=== PATIENT | male | born 1990 | race Caucasian/White ===

== ENCOUNTER 2018-05-11 06:05 | Inpatient (IN) | payer OTHER ==
[~2018-05-11] VITALS: Ht 170.2 cm; Wt 79.4 kg
[~2018-05-11 06:05] MED LIST: VERAPAMIL E.R240 M1 PO
[2018-05-11 06:14] VITALS: BP 131/87
[2018-05-11 06:40] LABS: CREATININE 1.1 mg/dL (0.6-1.3); POTASSIUM 3.6 mmol/L (3.5-5.1)
[2018-05-11 06:41] LABS: ABSOLUTE BASOPHILS 0.1 thou/uL (0.0-0.2); ABSOLUTE EOSINOPHILS 0.2 thou/uL (0.0-0.7); ABSOLUTE LYMPHOCYTES 2.6 thou/uL (0.8-5.3); ABSOLUTE MONOCYTES 1.1 thou/uL (0.0-1.2); ABSOLUTE NEUTROPHILS 9.5 thou/uL (1.6-8.1); BASOPHILS 0.8 %; EOSINOPHILS 1.7 %; HEMOGLOBIN 14.7 gm/dL (14.0-18.0); LYMPHOCYTES 19.2 %; MCH 27.6 pg (26.0-34.0); MCHC 33.3 g/dL (28.0-37.0); MCV 82.8 fL (80.0-100.0); MONOCYTES 7.8 %; MPV 7.5 fl. (7.2-11.1); NUCLEATED RBCS 0 /100WBC; PLATELET COUNT* 314 thou/uL (150-400); POLYS 70.5 %; RBC 5.32 mil/uL (4.50-6.00); WBC 13.5 thou/uL (4.0-11.0)
[2018-05-11 06:50] LABS: ALBUMIN 3.9 g/dL (3.4-5.0); TOTAL BILIRUBIN 0.6 mg/dL (<0.1-1.0); TOTAL PROTEIN 7.2 g/dL (6.4-8.2); TROPONIN-I LEVEL 0.21 ng/mL (<0.06)
--- NOTE | 2018-05-11 07:15 | NUR ---
CARDIZEM DRIP INFREASED FROM 10ML/HR TO 15ML/HR
--- NOTE | 2018-05-11 07:29 | NUR ---
CARDIZEM DRIP INCREASED TO 20/ML/HR
--- NOTE | 2018-05-11 07:33 | NUR ---
PATIENT CONVERTED TO SINUS RHYTHM
--- NOTE | 2018-05-11 07:54 | NUR ---
CARDIZEM DECREASED TO 15ML/HR
--- NOTE | 2018-05-11 08:20 | NUR ---
CARDIZEM DRIP DROPPED TO 10ML/HR
[2018-05-11 08:23] VITALS: BP 117/63
[2018-05-11 08:35] VITALS: BP 116/71
--- NOTE | 2018-05-11 10:47 | NUR ---
RECEIVED BEDSIDE REPORT FROM RAJNI OSHEA. ASSUMED CARE OF PT AROUND 0730. PT A&O X4. VSS. O2 97% ON RA. PT ORIENTED TO ROOM, BED AND CALL LIGHT. PT COMMUNCIATES UNDERSTANDING. ADMISSION HISTORY, EDUCATION AND ASSESSMENT COMPLETED CHARTED. PT DENIES PAIN OR DISCOMFORT AT THIS TIME. FLIGHT DATA TECHNICIAN PLACED TRACING SR WITH ABNORMAL T-WAVE. PT ASYMPTOMATIC. DENIES CHEST PAIN OR SOB. PT SEEN BY ADIS MOSLEY. ECHO ORDERED. FATHER AT BEDSIDE. PT CURRENLTY WATCHING TV IN BED. LOW FALL RISK PRECAUTIONS IN PLACE. CALL LIGHT IS WITHIN REACH. HOURLY ROUNDING PERFORMED. WCTM.
[2018-05-11 12:06] VITALS: BP 112/71
[2018-05-11 13:53] LABS: AMP/METHAMP Negative (Negative); BARBITURATES Negative (Negative); BENZODIAZEPINES POSITIVE (Negative); COCAINE Negative (Negative); METHADONE Negative (Negative); OPIATES Negative (Negative); PCP Negative (Negative); THC POSITIVE (Negative)
[2018-05-11 15:40] VITALS: BP 112/71
--- NOTE | 2018-05-11 18:01 | 2DMMODE ---
[place] [address] 2 D/M-MODE ECHOCARDIOGRAM Name: CARLITA THORNE [facility] Room: [address] IN [facility]#: [id number] Admission: 05/11/18 Attend Phys: Bonilla Cline Discharge: Date of : 89 Date of Service: 05/11/18 1801 Report #: [id number] THIS REPORT FOR: //name// APPROVED REPORT Study performed: 05/11/2018 14:33:27 EXAM: Comprehensive 2D, Doppler, and color-flow Echocardiogram Patient Location: In-Patient Room #: 200 Status: routine BSA: 1.91 HR: 75 bpm BP: 112/71 mmHg Rhythm: NSR Other Information Study Quality: Good Indications SVT 2D Dimensions LVEF(%): 62.38 (>50%) IVSd: 11.03 (7-11mm) LVOT Diam: 21.93 (18-24mm) LVDd: 48.08 mm PWd: 9.95 (7-11mm) Ascending Ao: 27.06 (22-36mm) LVDs: 31.88 (25-40mm) Aortic Root: 31.01 mm Ferrell's LVEF: 62.38 % Volumes Left Atrial Volume (Systole) LA ESV Index: 33.90 mL/m2 Aortic Valve AoV Peak Yousif.: 1.16 m/s AO Peak Gr.: 5.39 mmHg LVOT Max P.72 mmHg AO Mean Gr.: 2.80 mmHg LVOT Mean P.38 mmHg LVOT Max V: 1.20 m/s AO V2 VTI: 21.13 cm LVOT Mean V: 0.68 m/s DONNA (VTI): 4.05 cm2 LVOT V1 VTI: 22.65 cm Mitral Valve E/A Ratio: 2.41 [place] [address] 2 D/M-MODE ECHOCARDIOGRAM Name: CARLITA THORNE [facility] Room: [address] IN [facility].#: [id number] Admission: 05/11/18 Attend Phys: Bonilla Cline Discharge: Date of : 89 Date of Service: 05/11/18 1801 Report #: [id number] MV Decel. Time: 290.07 ms MV E Max Yousif.: 0.75 m/s MV PHT: 84.12 ms MVA (PHT): 2.62 cm2 TDI E/Lateral E': 4.17 E/Medial E': 5.77 Medial E' Yousif.: 0.13 m/s Lateral E' Yousif.: 0.18 m/s Pulmonary Valve PV Peak Yousif.: 0.90 m/s PV Peak Gr.: 3.21 mmHg Left Ventricle The left ventricle is normal size. There is normal LV segmental wall motion. There is normal left ventricular wall thickness. Left ventricular systolic function is normal. The left ventricular ejection fraction is within the normal range. LVEF is 55-60%. The left ventricular diastolic function is normal. Right Ventricle The right ventricle is normal size. The right ventricular systolic function is normal. Atria The left atrium size is normal. The right atrium size is normal. Aortic Valve Mild aortic valve sclerosis. No aortic regurgitation is present. There is no aortic valvular stenosis. Mitral Valve The mitral valve is normal in structure. Trace mitral regurgitation. No evidence of mitral valve stenosis. Tricuspid Valve The tricuspid valve is normal in structure. Unable to assess PA pressure. Trace tricuspid regurgitation. Pulmonic Valve The pulmonary valve is normal in structure. There is no pulmonic valvular regurgitation. Great Vessels The aortic root is normal in size. IVC [place] [address] 2 D/M-MODE ECHOCARDIOGRAM Name: CARLITA THRONE [facility] Room: [address] IN ..#: [id number] Admission: 05/11/18 Attend Phys: Bonilla Cline Discharge: Date of : 89 Date of Service: 05/11/18 1801 Report #: [id number] collapses with >50% inspiration Pericardium There is no pericardial effusion. <Conclusion> The left ventricle is normal size. There is normal left ventricular wall thickness. Left ventricular systolic function is normal. The left ventricular ejection fraction is within the normal range. LVEF is 55-60%. The left ventricular diastolic function is normal. The right ventricle is normal size. The left atrium size is normal. Mild aortic valve sclerosis. No aortic regurgitation is present. There is no aortic valvular stenosis. The mitral valve is normal in structure. Trace mitral regurgitation. The tricuspid valve is normal in structure. IVC is normal in size and collapses with >50% inspiration There is no pericardial effusion. There is normal LV segmental wall motion. <ELECTRONICALLY SIGNED> By: Salomon Doyle MD, FACC 05/11/181800 00 00 Salomon Doyle MD, FACC /INF
--- NOTE | 2018-05-11 18:17 | NUR ---
PT REMAINS A&O X4. VSS. O2 SAT >90% ON RA. WET MACHINE TENDER REMAINS IN PLACE WITH NO CHAGNES - PT REMAINS IN SR. CARDIZEM DRIP STOPPED PER ORDERS. VERAPAMIL GIVEN PER EMAR. PT EATING AND DRINKING WITHOUT ISSUE. PT DENIES PAIN OR DISCOMFORT. PT UP AD GINA TO THE BATHROOM. FATHER AT BEDSIDE FOR MOST OF SHIFT. PT CURRENTLY RESTING IN BED WATCHING TV. LOW FALL RISK PRECAUTIONS IN PLACE. CALL LIGHT IS WITHIN REACH, HOURLY ROUNDING PERFORMED. WCTM FOR DURATION OF SHIFT.
[2018-05-11 20:00] VITALS: BP 105/71
[2018-05-12] VITALS: BP 106/58
--- NOTE | 2018-05-12 03:13 | NUR ---
PT ALERT ORIENTED. UP AD GINA IN ROOM. TELEMETRY SHOWS SR. ORDER IN CHART FOR NPO AFTER MN. PT MADE NPO. UNABLE TO FIND REASON FOR NPO STATUS AT THIS LATE HOUR. WILL CONTINUE TO MONITOR.
[2018-05-12 04:00] VITALS: BP 96/42
[2018-05-12 07:30] VITALS: BP 111/69
[2018-05-12 08:57] VITALS: BP 111/69
--- NOTE | 2018-05-12 11:26 | NUR ---
PATIENT IS ALERT AND ORIENTED X4, ANTICIPATING HE WOULD BE DISCHARGED TODAY. CARDIOLOGY OK WITH DC TODAY. DISCHARGE ORDERS RECEIVED PER DR SIBLEY. NEW SCRIPT GIVEN FOR VERAPAMIL WITH MED INFORMATION SHEET. EDUCATED PT ON F/U APPT WITH HIS PRIMARY AND CARDIOLOGY. PATIENT DENIES ANY QUESTIONS OR CONCERNS AT DISCHAGE. IV DISCONTINUED. IN HOME SALES REPRESENTATIVE REMOVED AND RETURNED TO NURSE'S DESK. ALL HIS BELONGINGS ARE PACKED AND LEAVING WITH PATIENT. LEAVING VIA AMBULATORY PER THE PATIENT REQUEST ACCOMPANIED BY HIS GF AND NURSING STAFF.
--- NOTE | 2018-05-12 13:33 | EKG ---
[place] [address] ELECTROCARDIOGRAM REPORT Name: CARLITA THORNE III Room: [address] IN [facility]#: [id number] Admission: 05/11/18 Attend Phys: Juan J Ramirez Discharge: 05/12/18 Date of : 89 Report #: [id number] THIS REPORT FOR: //name// [facility] ED Test Date: 2018-05-11 Test Time: 06:16:00 Pat Name: CARLITA THORNE Department: Room: Gender: Stone Gang Sawyer: CLAUDIA : 1990 Requested By: Talib Ritter Order Number: [id number] MD: Michael Ordonez Measurements Intervals [place] Rate: 187 P: -36 [place]: 147 QRS: -93 QRSD: 140 T: -45 QT: 299 QTc: 528 Interpretive Statements SVT Left atrial enlargement RBBB and LAFB Abnormal T, consider ischemia, lateral leads Baseline wander in lead(s) V1 Compared to ECG 12/22/2012 17:10:13 Atrial abnormality now present Left anterior fascicular block now present Right bundle-branch block now present Sinus rhythm no longer present T-wave abnormality still present Possible ischemia still present Electronically Signed On 05-12-2018 13:32:57 CDT by Michael Ordonez [email or web address] <ELECTRONICALLY SIGNED> By: Michael Ordonez MD, [facility] 05/12/18 1332 0616 Michael Ordonez MD, [facility] /EPI
--- NOTE | 2018-05-12 13:33 | EKG ---
[place] [address] ELECTROCARDIOGRAM REPORT Name: CARLITA THORNE III Room: [address] IN [facility]#: [id number] Admission: 05/11/18 Attend Phys: Juan J Ramirez Discharge: 05/12/18 Date of : 89 Report #: [id number] THIS REPORT FOR: //name// [facility] ED Test Date: 2018-05-11 Test Time: 06:24:00 Pat Name: CARLITA THORNE Department: Room: Gender: Manager Car: CLAUDIA : 1990 Requested By: Ole Multani Order Number: [id number] MD: Michael Ordonez Measurements Intervals [place] Rate: 179 P: -49 [place]: 134 QRS: -92 QRSD: 136 T: -86 QT: 301 QTc: 520 Interpretive Statements SVT RBBB and LAFB Abnormal T, consider ischemia, lateral leads Compared to ECG 12/22/2012 17:10:13 Left anterior fascicular block now present Right bundle-branch block now present Sinus rhythm no longer present T-wave abnormality still present Possible ischemia still present Electronically Signed On 05-12-2018 13:33:10 CDT by Michael Ordonez [email or web address] <ELECTRONICALLY SIGNED> By: Michael Ordonez MD, [facility] 05/12/18 1333 0624 Michael Ordonez MD, [facility] /EPI
--- NOTE | 2018-05-12 13:37 | EKG ---
[place] [address] ELECTROCARDIOGRAM REPORT Name: CARLITA THORNE III Room: [address] DIS IN .R.#: [id number] Admission: 05/11/18 Attend Phys: Juan J Ramirez Discharge: 05/12/18 Date of : 89 Report #: [id number] THIS REPORT FOR: //name// [facility] ED Test Date: 2018-05-11 Test Time: 07:34:05 Pat Name: CARLITA THORNE Department: Room: [address] Gender: M Power Technician: CLAUDIA : 1990 Requested By: Talib Ritter Order Number: [id number] Reading MD: Michael Ordonez Measurements Intervals [place] Rate: 86 P: 49 [place]: 162 QRS: 36 QRSD: 88 T: 248 QT: 456 QTc: 546 Interpretive Statements Sinus rhythm Repol abnrm, global ischemia, diffuse leads Borderline ST elevation, anterior leads Prolonged QT interval Compared to ECG 12/22/2012 17:10:13 Early repolarization now present ST (T wave) deviation now present Prolonged QT interval now present T-wave abnormality no longer present Possible ischemia still present Electronically Signed On 05-12-2018 13:36:53 CDT by Michael Ordonez [email or web address] <ELECTRONICALLY SIGNED> By: Michael Ordonez MD, [facility] 05/12/18 1336 0734 0734 Michael Ordonez MD, [facility] /EPI
== END 2018-05-12 11:28 | disposition home or self-care (01) | DRG 310 ==
LOC: M.ERS 06:05 → M.2W 07:37 → M.TBA-ER 07:37 → M.2W 08:42
PROVIDERS: Emergency Medicine; ADMIT Internal Medicine
DX: I47.1 Supraventricular tachycardia (principal); J30.2 Other seasonal allergic rhinitis; F12.90 Cannabis use, unspecified, uncomplicated; Z87.891 Personal history of nicotine dependence